=== PATIENT | male | born 1985 | race Caucasian/White ===

== ENCOUNTER 2022-03-03 03:47 | Emergency (ER) | payer OTHER, SELFPAY ==
[2022-03-03 03:58] VITALS: PULSE 85; RESP 20; TEMP 35.6; O2SAT 97
--- NOTE | 2022-03-03 04:53 | ED.SKABFB ---
HPI - Skin/Abscess/Foreign Bdy General Chief complaint: Skin/Abscess/Foreign Body Stated complaint: cyst from ingrown hair on left buttock Time Seen by Provider: 03/03/22 04:01 History of Present Illness HPI narrative: Patient presents with pain on his left gluteal area. Patient reports he had pain for the past few days getting progressively worse and starting to sit. He thought maybe he was having a hemorrhoid his looked at it and said it was not a hemorrhoid and he came to the ER for further evaluation. Thinks maybe it is a cyst that needs to be drained. Denies any pain with bowel movements denies any nausea vomiting fevers or diaphoresis. Pain is achy, constant, worse with sitting down and putting pressure on the area no radiation Related Data Allergies Allergy/AdvReac Type Severity Reaction Status Date / Time SULFAMETHOXAZOLE (Generic Allergy Y Uncoded 03/20/03 13:40 Allergy) Review of Systems Review of Systems: CONSTITUTIONAL: Denies fever, chills, or sweats. EYES: Denies visual changes, redness, or discharge. ENT: Denies rhinorrhea, congestion, sore throat, or otalgia. CARDIOVASCULAR: Denies chest pain, palpitations, or edema. RESPIRATORY: Denies cough or dyspnea. GASTROINTESTINAL: Denies abdominal pain, nausea, vomiting, or diarrhea. GENITOURINARY: Denies dysuria or hematuria. SKIN: Denies rash or itching. MUSCULOSKELETAL: Denies back pain, joint pain, or myalgia. NEUROLOGIC: Denies headache, numbness, dizziness, or weakness. PSYCHIATRIC: Denies anxiety or depression. All systems reviewed & are unremarkable except as noted in HPI and below Exam Narrative: GENERAL: Well-appearing, well-nourished, and in no acute distress. HEAD: Normocephalic, atraumatic. EYES: PERRLA and EOMI. ENT: Nares clear, no rhinorrhea or epistaxis. Mucous membranes moist. NECK: Supple. No masses. No JVD Rectal: There is a large area of erythema on the medial aspect of the left gluteal area tracking toward but not adjacent to the rectum mild pain with palpation of the rectum EXTREMITIES: Normal range of motion. No edema. SKIN: Warm, dry, no rash. NEURO: No focal deficits. Alert and oriented x3. PSYCH: Normal mood and affect. Course Reevaluation(s) Reevaluation #1: Patient tolerated I&D well wound care instructions given patient is feeling improved after procedure. Date: 03/03/22 Time: 04:58 Vital Signs Vital signs: Vital Signs Temperature 35.6 C L 03/03/22 03:58 Pulse Rate 85 03/03/22 03:58 Respiratory Rate 20 03/03/22 03:58 Pulse Oximetry 97 03/03/22 03:58 Oxygen Delivery Room Air 03/03/22 03:58 Temperature 36.2 C L 03/03/22 05:07 Pulse Rate 97 03/03/22 05:07 Respiratory Rate 20 03/03/22 05:07 Blood Pressure 128/98 H 03/03/22 05:07 Pulse Oximetry 99 03/03/22 05:07 Oxygen Delivery Room Air 03/03/22 03:58 Procedures Abscess I/D gopal-rectal: Date of Incision: 03/03/22 Time of Incision: 04:34 Side (if applicable): left Sedation/analgesia: none Local Anesthetic: lidocaine 1% and with epi Amount of anesthesia used (mL): 12 Technique: incised with #11 blade Amount of fluid expressed (mL): 25 Irrigation: Yes Packing used?: iodoform I&D Results: Pus and Blood Abcess I&D Additional Comments: Incision made over the area of erythema and a large amount of purulent drainage was obtained the wound probed with hemostats and irrigated with approximately 300ml of normal saline MDM - Skin/Abscess/Foreign Bdy MDM Narrative Medical decision making narrative: H&P as above, vss, pt looks clinically well, exam is large area of erythema and firmness concerning for abscess,labs/img considered, symptomatic relief available as needed, patient treated with an I&D on reevaluation pt continues to looks clinically well and reports improvement in symptoms Suspect abscess however after I&D there may be erythema on the skin concerning for
[2022-03-03] MEDS: LIDO 1%/EPINEPHRINE 1:100,000 20 ML VIAL (04:58)
[2022-03-03] MEDS: SODIUM CHLORIDE 0.9% IV 500 ML 999 ML (04:59)
[2022-03-03 05:07] VITALS: BP 128/98; PULSE 97; RESP 20; TEMP 36.2; O2SAT 99
== END 2022-03-03 05:18 | disposition home or self-care (01) ==
PROVIDERS: Emergency Provider Emergency Medicine; PCP Family Medicine
DX: L03.317 Cellulitis of buttock (principal); L02.31 Cutaneous abscess of buttock
CPT/HCPCS: 46040; 99283; J7040